=== PATIENT | female | born 1985 | race Caucasian/White ===

== ENCOUNTER → 2022-09-25 | Outpatient (CLI) | payer MEDICAID, SELFPAY ==
[2022-09-25 17:42] LABS: Absolute Lymphocyte Count 3.34 X10^3/uL (0.83-4.51); Absolute Neutrophil Count 3.1 X10^3/uL (2.0-7.7); Basophil# 0.02 X10^3/uL; Basophil% 0.3 % (0-1); Eosinophil# 0.06 X10^3/uL; Eosinophils% 0.9 % (0-5); Hematocrit 40.8 % (37-47); Hemoglobin 14.1 g/dL (12.0-15.0); Lymphocyte # 3.34 X10^3/ul (0.83-4.51); Lymphocyte % 47.4 % (19-41); Mean Corp Hgb Conc 34.6 g/dL (32-36); Mean Corpuscular Hgb 32.7 pg (27.0-32.0); Mean Corpuscular Volume 94.7 fL (81-99); Mean Platelet Vol. 12.6 fl (6.2-12.0); Monocyte# 0.52 X10^3/uL; Monocyte% 7.4 % (0-10); NRBC Flagged by Analyzer 0 % (0-5); Neutrophil # 3.08 X10^3/uL (2.7-7.7); Neutrophil % 43.7 % (47-70); Platelet Count 202 K/mm3 (150-450); RBC Distribution Width CV 12.4 % (11.6-14.6); RBC Distribution Width SD 42.8 fl (35.1-43.9); Red Blood Count 4.31 M/mm3 (4.2-5.4)
[2022-09-25 17:54] LABS: Erythrocyte Sedimentation Rate 4 mm/hr (0-30)
[2022-09-25 18:19] LABS: ALB/GLOB Ratio 1.1 RATIO (0.9-2.4); AST(SGOT) 14 U/L (15-37); Alanine Aminotransfer ALT/SGPT 25 U/L (13-56); Albumin, Serum 3.9 g/dL (3.2-5.0); Alkaline Phosphatase 45 U/L (45-117); Anion Gap 7 (5-15); BUN 11 mg/dL (7-18); BUN/Creat Ratio 13.4 RATIO (10-20); Chloride 107 mmol/L (98-107); Creatinine, Serum 0.82 mg/dL (0.55-1.02); EST Glomerular Filtration Rate 84 mL/min (>60); Est Glom Filt Rate - Afr Amer 102 mL/min (>60); Globulin 3.5 g/dL (2.2-4.2); Glucose 92 mg/dL (74-106); Potassium 3.9 mmol/L (3.5-5.1); Protein, Total 7.4 g/dL (6.4-8.2); Rheumatoid Factor < 10.0 IU/mL (<15); Sodium Level 138 mmol/L (136-145); Thyroid Stim Hormone (TSH) 1.22 uIU/mL (0.358-3.74)
[2022-09-28 17:15] LABS: ANTINUCLEAR ANTIBODIES DIRECT Negative (Negative)
[2022-09-30 16:45] LABS: CCP IgG Antibodies 5 units (0-19)
== END | disposition home or self-care (01) ==
PROVIDERS: PCP Family Medicine; Referring Provider Family Medicine; Visit Provider Family Medicine
DX: M06.9 Rheumatoid arthritis, unspecified (principal); F41.9 Anxiety disorder, unspecified
CPT/HCPCS: 86235 ×2; 86225; 36415; 80053; 84443; 85025; 85652; 86038; 86200; 86431

== ENCOUNTER → 2022-12-22 | Outpatient (CLI) | payer MEDICAID, SELFPAY ==
[2022-12-22 16:05] LABS: D-Dimer Quantitative (DVT/PE) < 0.27 FEU/ug/m (0.27-0.49)
== END | disposition home or self-care (01) ==
LOC: LABSPEC 15:04
PROVIDERS: PCP Family Medicine; Visit Provider Nurse Practitioner Acute Care
DX: R05.1 Acute cough (principal)
CPT/HCPCS: 85379

== ENCOUNTER 2023-02-24 13:34 | Emergency (ER) | payer MEDICAID, SELFPAY ==
[2023-02-24 13:36] VITALS: BP 118/74; PULSE 61; RESP 18; TEMP 36.4; O2SAT 99; BMI 25.7
--- NOTE | 2023-02-24 13:48 | NURSING ---
NO OLD EKGS
--- NOTE | 2023-02-24 13:55 | EKG12_ITS ---
Test Reason : SYNCOPE Blood Pressure : / mmHG Vent. Rate : 051 BPM Atrial Rate : 051 BPM P-R Int : 154 ms QRS Dur : 080 ms QT Int : 420 ms P-R-T Axes : 067 074 066 degrees QTc Int : 387 ms Sinus bradycardia Otherwise normal ECG Tall T wave Confirmed by AARON THOMAS ([id number]), video effects editor MARINA HANNAH ([id number]) on 03/02/2023 7:30:58 AM Referred By: Jermaine Rodriguez Confirmed By:AARON THOMAS
[2023-02-24 14:06] LABS: Absolute Lymphocyte Count 5.31 X10^3/uL (0.83-4.51); Absolute Neutrophil Count 4.3 X10^3/uL (2.0-7.7); Basophil# 0.03 X10^3/uL; Basophil% 0.3 % (0-1); Eosinophil# 0.07 X10^3/uL; Eosinophils% 0.7 % (0-5); Hematocrit 38.6 % (37-47); Hemoglobin 12.7 g/dL (12.0-15.0); Lymphocyte # 5.31 X10^3/ul (0.83-4.51); Lymphocyte % 50.8 % (19-41); Mean Corp Hgb Conc 32.9 g/dL (32-36); Mean Corpuscular Hgb 32.2 pg (27.0-32.0); Mean Corpuscular Volume 97.7 fL (81-99); Mean Platelet Vol. 11.2 fl (6.2-12.0); Monocyte# 0.74 X10^3/uL; Monocyte% 7.1 % (0-10); NRBC Flagged by Analyzer 0 % (0-5); Neutrophil # 4.27 X10^3/uL (2.7-7.7); Neutrophil % 40.7 % (47-70); POSITIVE DIFFERENTIAL YES; Platelet Count 260 K/mm3 (150-450); RBC Distribution Width CV 12.9 % (11.6-14.6); RBC Distribution Width SD 46.3 fl (35.1-43.9); Red Blood Count 3.95 M/mm3 (4.2-5.4); White Blood Count 10.5 K/mm3 (4.4-11.0)
[2023-02-24 14:11] LABS: Differential Indicated SCAN CRITERIA MET
[2023-02-24 14:22] LABS: ALB/GLOB Ratio 0.9 RATIO (0.9-2.4); AST(SGOT) 27 U/L (15-37); Alanine Aminotransfer ALT/SGPT 25 U/L (13-56); Albumin, Serum 3.4 g/dL (3.2-5.0); Alkaline Phosphatase 60 U/L (45-117); Anion Gap 3 (5-15); BUN 17 mg/dL (7-18); BUN/Creat Ratio 16.8 RATIO (10-20); Calcium,Total 9.5 mg/dL (8.5-10.1); Chloride 107 mmol/L (98-107); Creatinine, Serum 1.01 mg/dL (0.55-1.02); EST Glomerular Filtration Rate 66 mL/min (>60); Est Glom Filt Rate - Afr Amer 80 mL/min (>60); Estimated Creatinine Clearance 78.43 ml/min; Globulin 3.6 g/dL (2.2-4.2); Glucose 119 mg/dL (74-106); Lipase 121 U/L (13-75); Potassium 3.6 mmol/L (3.5-5.1); Sodium Level 136 mmol/L (136-145)
--- NOTE | 2023-02-24 14:26 | EDS_ITS ---
HPI History of Present Illness Chief Complaint: Syncope Detail of Chief Complaint: Syncopal episode and severe upper abdominal pain Informant: patient Onset/Context/Timing Onset: Hours Context: Sudden Onset Timing: Intermittent (Syncope was intermittent the abdominal pain has been constant since onset) Quality: Severe intense Location: Epigastric left upper quadrant Current Severity: Severe Maximum Severity: Severe Worsened by: Nothing specific Relieved by: Nothing Associated Symptoms Associated Symptoms: Nausea and syncope Narrative Narrative: Patient is a 37-year-old woman who developed severe epigastric left upper quadrant pain described as severe intense pain without radiation that was followed by change in vision, nausea and was informed by spectator that she became pale and was unresponsive. She states she may have had a seizure. There was no incontinence of urine or stool. She denies headache. She is uncertain whether she awoke immediately and was or was not confused. She denies black or maroon-colored stool. She denies shortness of breath, difficulty breathing or pleuritic pain. The pain does not radiate. She had similar pain when she was diagnosed with cholelithiasis and was told she had pancreatitis. She denies fever, chills night sweats. She denies headache, visual, ocular auditory symptoms. She denies renal or ureterolithiasis. She denies dysuria, frequency, urgency or hematuria. She is status post hysterectomy. Prior similar symptoms: Yes (Pain is similar to when she was diagnosed with pancreatitis) Recent Illness/Hospitalization: No PFSH PFSH Medical History (Updated 02/24/23 @ 15:[address] Jermaine Rodriguez MD) Anxiety Depression Home Medications hydrocodone-acetaminophen 5-325mg 5mg-325mg 1 tab PO Q6H PRN PRN Pain 3 days #10 TABLETS 02/24/23 [Rx Last Taken Unknown] Allergy/AdvReac Type Severity Reaction Status Date / Time fentanyl Allergy Itching Verified 02/24/23 13:41 morphine Allergy Itching Verified 02/24/23 13:41 Surgical History (Updated 02/24/23 @ 14:32 by Machelle Cruz) H/O: hysterectomy Hx of cholecystectomy Social History Smoking Status: Current every day smoker tobacco type: cigarettes ROS ROS ED Constitutional Constitutional ED: Denies chills, fever(s), subjective, sweats or weight loss Eyes Eyes: Denies blurry vision, change in vision or diplopia ENT ENT ED: Denies ear pain, rhinorrhea or sore throat Cardiovascular Cardiovascular: Denies chest pain, orthopnea, palpitations, paroxysmal nocturnal dyspnea or racing heartbeat Respiratory/Chest Respiratory/Chest: Denies cough, dyspnea, dyspnea on exertion, orthopnea or paroxysmal nocturnal dyspnea Gastrointestinal Gastrointestinal: Reports abdominal pain and nausea; Denies constipation, diarrhea, melena or vomiting Genitourinary Genitourinary ED: Denies dysuria, hematuria or urinary frequency Musculoskeletal Musculoskeletal: Denies arthralgias, back pain or myalgias Integumentary Denies rash Neurologic Neurologic: Denies headache(s), paresthesias or weakness Psychiatric Psychiatric: Reports anxiety and depression; Denies suicidal ideation Hematologic/Lymphatic Hematologic/Lymphatic: Reports systems reviewed and no addt'l complaints, except as documented EXAM Physical Exam Const Vital Signs: 02/24/23 13:36 02/24/23 13:41 02/24/23 14:57 Temperature 97.6 F L Temperature Source Temporal Pulse Rate 61 63 Respiratory Rate 18 18 Respiratory Effort Non-Labored Blood Pressure 118/74 112/77 Blood Pressure Mean 88 88 Pulse Ox 99 93 Oxygen Delivery Method Room Air Room Air 02/24/23 15:39 Temperature Temperature Source Pulse Rate 66 Respiratory Rate 12 Respiratory Effort Blood Pressure 111/69 Blood Pressure Mean 83 Pulse Ox 98 Oxygen Delivery Method Room Air Positive well nourished and well developed Constitutional Narrative: There was [place] no eye contact during history and physical. Patient appears in discomfort. She is holding her abdomen in the epigastric left upper quadrant. General Appearance ED: well developed; Negative for cyanotic, diaphoretic, NAD or pallor HEENT Reports dry mucous membranes HEENT Narrative: Head is atraumatic normocephalic. Ears normal. Nares patent. Mouth ED: Yes dry mucous membranes Mouth: dry mucous membranes Eyes PERRL and EOMs intact bilaterally General Eye ED: Negative for pale conjunctiva or scleral icterus Neck no lymphadenopathy, supple and no JVD Chest Wall inspection of chest normal and palpation of chest normal Resp normal respiratory effort and clear to auscultation bilaterally Cardio regular rate, regular rhythm, S1 normal heart sound, S2 normal heart sound and no murmurs GI non-distended and no masses; Negative for hepatosplenomegaly Auscultation: hypoactive bowel sounds Palpation: soft, tender epigastric and LUQ and guarding LUQ; Negative for splenomegaly, mass or rebound tenderness present Back/Spine no CVA tenderness Neuro oriented x3 and CN's II-XII intact bilaterally Sensorium / Orientation: alert Psych Psych Narrative: No eye contact. Affect is blunted. Skin no rashes or lesions noted, no wounds and skin turgor normal General Skin Exam: elasticity normal; Negative for jaundice or pallor MDM MDM MDM Narrative Medical decision making narrative: Suspect patient had a basal vagal episode due to pain. Since she has pain in the epigastric and left upper quadrant will treat with GI cocktail for possible esophagitis/gastritis. Will obtain lipase level since she has history of pancreatitis. Will obtain CBC to assess white count as well as H&H. Compre hensive metabolic panel was obtained to assess BUN/creatinine ratio and transaminases. Will medicate patient with IV morphine for her pain as well. Prior records were reviewed and patient is status postcholecystectomy. What was documented by nursing staff is incorrect. History & Record Review Additional record(s) reviewed:: Prior inpatient record and Prior labs Lab Data Attestation: I reviewed the patient's lab results. Lab results narrative: CBC is unremarkable. Comprehensive metabolic panel is remarkable for slight elevation in glucose of 119. Lipase is approximately 2 times upper end of normal and may represent pancreatitis. Incidence of pancreatitis is 70%. Labs: Laboratory Results - last 24 hr 02/24/23 02/24/23 13:27 13:27 WBC 10.5 RBC 3.95 L Hgb 12.7 Hct 38.6 MCV 97.7 MCH 32.2 H MCHC 32.9 RDW Std Deviation 46.3 H RDW Coeff of Heriberto 12.9 Plt Count 260 MPV 11.2 Immature Gran % (Auto) 0.400 Neut % (Auto) 40.7 L Lymph % (Auto) 50.8 H [place] % (Auto) 7.1 Eos % (Auto) 0.7 Baso % (Auto) 0.3 Absolute Neuts (auto) 4.3 Absolute Lymphs (auto) 5.31 H Nucleated RBC % 0 Differential Comment SCANNED Sodium 136 Potassium 3.6 Chloride 107 Carbon Dioxide 26.0 Anion Gap 3 L BUN 17 Creatinine 1.01 Estim Creat Clear Calc 78.43 Est GFR (MDRD) Af Amer 80 Est GFR (MDRD) Non-Af 66 BUN/Creatinine Ratio 16.8 Glucose 119 H Calcium 9.5 Total Bilirubin 0.20 AST 27 ALT 25 Alkaline Phosphatase 60 Total Protein 7.0 Albumin 3.4 Globulin 3.6 Albumin/Globulin Ratio 0.9 Lipase 121 H EKG Initial EKG: Attestation: I personally reviewed and interpreted this EKG as follows: Interpretation: Sinus Bradycardia (Rate of 51. The EKG is normal other than the bradycardia. IN interval is 154 ms. QS duration 80 ms. QT duration 420 ms. [place] is normal.) Treatment and Re-Evaluation :: Patient was informed and reevaluated of her results at 1545. Patient states the pain is markedly better. She acknowledges she did have drinks recently. She was informed that this in all likelihood is pancreatitis from her drinking. Recommended refraining from drinking. She was discharged with prescription for opiate analgesia and she was told the reason she passed out was because of the pain. She was explained what a vasovagal episode is. Discharge Plan Triage Chief Complaint: Syncope ED Provider: Jermaine Rodriguez Dx/Rx/DC Orders Clinical Impression: Acute alcoholic pancreatitis, Vasovagal syncope Instructions: ED Pancreatitis, ED Fainting, Vagal Reaction Prescriptions: New hydrocodone-acetaminophen [hydrocodone-acetaminophen] 5-325 mg tablet 1 tab PO Q6H PRN PRN (Reason: Pain) 3 Days Qty: 10 0RF Primary Care Provider: Behzad Escamilla Referrals: Behzad Escamilla MD [Primary Care Provider] - Disposition Disposition: Home, Self Care
[2023-02-24] MEDS: Ondansetron 4 MG/2 ML Vial IV (14:49)
[2023-02-24] MEDS: Mag Hydrox/Al Hydrox/Simeth 30 ML UDC PO (14:49)
[2023-02-24 14:57] VITALS: BP 112/77; PULSE 63; RESP 18; O2SAT 93
[2023-02-24 15:27] LABS: Differential Comment SCANNED
[2023-02-24 15:39] VITALS: BP 111/69; PULSE 66; RESP 12; O2SAT 98
== END 2023-02-24 16:11 | disposition home or self-care (01) ==
PROVIDERS: Emergency Provider Emergency Medicine; PCP Family Medicine; Referring Provider Emergency Medicine; Visit Provider Emergency Medicine
DX: R55 Syncope and collapse (principal); F17.210 Nicotine dependence, cigarettes, uncomplicated; K85.20 Alcohol induced acute pancreatitis without necrosis or infection; Z90.710 Acquired absence of both cervix and uterus
CPT/HCPCS: 80053; 83690; 85025; 93005; 96374; 99285; A4216; J2405

== ENCOUNTER 2023-03-02 09:37 | Outpatient (CLI) | payer MEDICAID, SELFPAY ==
[2023-03-02 10:15] LABS: Hematocrit 48.3 % (37-47); Hemoglobin 15.7 g/dL (12.0-15.0); Mean Corp Hgb Conc 32.5 g/dL (32-36); Mean Corpuscular Hgb 31.8 pg (27.0-32.0); Mean Corpuscular Volume 97.8 fL (81-99); Mean Platelet Vol. 11.1 fl (6.2-12.0); Platelet Count 276 K/mm3 (150-450); RBC Distribution Width CV 13.1 % (11.6-14.6); RBC Distribution Width SD 46.7 fl (35.1-43.9); Red Blood Count 4.94 M/mm3 (4.2-5.4); White Blood Count 6.2 K/mm3 (4.4-11.0)
[2023-03-02 11:00] LABS: AST(SGOT) 21 U/L (15-37); Alanine Aminotransfer ALT/SGPT 56 U/L (13-56); Albumin, Serum 3.9 g/dL (3.2-5.0); Alkaline Phosphatase 92 U/L (45-117); Anion Gap 6 (5-15); BUN 10 mg/dL (7-18); BUN/Creat Ratio 12.5 RATIO (10-20); Calcium,Total 9.7 mg/dL (8.5-10.1); Chloride 109 mmol/L (98-107); EST Glomerular Filtration Rate 87 mL/min (>60); Est Glom Filt Rate - Afr Amer 105 mL/min (>60); Globulin 3.9 g/dL (2.2-4.2); Glucose 125 mg/dL (74-106); Lipase 40 U/L (13-75); Potassium 4.1 mmol/L (3.5-5.1); Protein, Total 7.8 g/dL (6.4-8.2); Sodium Level 136 mmol/L (136-145)
== END 2023-03-02 23:59 | disposition home or self-care (01) ==
LOC: MFPLAB 09:41
PROVIDERS: PCP Family Medicine; Visit Provider Nurse Practitioner Family
DX: K85.90 Acute pancreatitis without necrosis or infection, unspecified (principal)
CPT/HCPCS: 36415; 80053; 83690; 85027

== ENCOUNTER → 2023-03-16 | Outpatient (CLI) | payer MEDICAID, SELFPAY ==
[2023-03-16 15:38] LABS: Absolute Lymphocyte Count 2.66 X10^3/uL (0.83-4.51); Basophil# 0.03 X10^3/uL; Basophil% 0.4 % (0-1); Eosinophil# 0.12 X10^3/uL; Eosinophils% 1.6 % (0-5); Hematocrit 41.6 % (37-47); Hemoglobin 13.7 g/dL (12.0-15.0); Lymphocyte # 2.66 X10^3/ul (0.83-4.51); Lymphocyte % 36.2 % (19-41); Mean Corp Hgb Conc 32.9 g/dL (32-36); Mean Corpuscular Volume 97.2 fL (81-99); Mean Platelet Vol. 11.9 fl (6.2-12.0); Monocyte# 0.48 X10^3/uL; Monocyte% 6.5 % (0-10); NRBC Flagged by Analyzer 0 % (0-5); Neutrophil # 4.04 X10^3/uL (2.7-7.7); Platelet Count 262 K/mm3 (150-450); RBC Distribution Width CV 12.6 % (11.6-14.6); RBC Distribution Width SD 45.2 fl (35.1-43.9); Red Blood Count 4.28 M/mm3 (4.2-5.4); White Blood Count 7.4 K/mm3 (4.4-11.0)
[2023-03-16 15:56] LABS: AST(SGOT) 18 U/L (15-37); Alanine Aminotransfer ALT/SGPT 23 U/L (13-56); Albumin, Serum 3.7 g/dL (3.2-5.0); Alkaline Phosphatase 61 U/L (45-117); Anion Gap 7 (5-15); BUN 10 mg/dL (7-18); BUN/Creat Ratio 12.3 RATIO (10-20); Calcium,Total 9.3 mg/dL (8.5-10.1); Chloride 110 mmol/L (98-107); Creatinine, Serum 0.82 mg/dL (0.55-1.02); EST Glomerular Filtration Rate 85 mL/min (>60); Est Glom Filt Rate - Afr Amer 102 mL/min (>60); Globulin 3.7 g/dL (2.2-4.2); Glucose 99 mg/dL (74-106); Potassium 3.8 mmol/L (3.5-5.1); Protein, Total 7.4 g/dL (6.4-8.2); Sodium Level 141 mmol/L (136-145)
[2023-03-16 16:01] LABS: Erythrocyte Sedimentation Rate 5 mm/hr (0-30)
== END | disposition home or self-care (01) ==
PROVIDERS: PCP Family Medicine; Referring Provider Family Medicine; Visit Provider Family Medicine
DX: R51.9 Headache, unspecified (principal)
CPT/HCPCS: 80053; 85025; 85652

== ENCOUNTER 2025-01-10 07:18 | Emergency (ER) | payer BC, MEDICAID, SELFPAY ==
[2025-01-10 07:19] VITALS: BP 114/78; PULSE 122; RESP 20; TEMP 37.7; O2SAT 98; BMI 21.8
[2025-01-10] MEDS: Ondansetron ODT 4 MG Tablet PO (07:51)
[2025-01-10] MEDS: Acetaminophen 500 MG Tablet 1000 MG PO (07:51)
--- NOTE | 2025-01-10 07:55 | EX.ED.DYSGE1 ---
HPI History of Present Illness Chief Complaint: Nausea/Vomiting/Diarrhea Narrative Narrative: Patient is a 39-year-old female with past medical history of Varsha, depression who presents to the emergency department chief complaint of nausea vomiting diarrhea whole body aches and not feeling well. Patient said yesterday she did not feel complete her normal self however around 1 AM this morning woke up with the symptoms. Patient denies any sick contacts. Patient complains of chills. [facility] Medical History Depression Anxiety Allergy/AdvReac Type Severity Reaction Status Date / Time fentanyl Allergy Itching Verified 06/14/24 11:20 morphine Allergy Itching Verified 06/14/24 11:20 Family History no significant family his Surgical History Hx of cholecystectomy H/O: hysterectomy Social History Smoking Status: Light Smoker (<10/day) ROS ROS ED ROS Narrative Constitutional: Complains of fever, chills, denies lightheaded dizziness Eyes: Denies change in vision double vision blurry vision Cardiovascular: Denies chest pain or palpitations Respiratory: Denies coughing wheezing shortness of breath Abdomen: Complains of nausea vomiting diarrhea as noted above : Denies urinary symptoms Neurological: Denies numbness, weakness, tingling Musculoskeletal: Denies back pain but complains of whole body aches Skin: Denies rashes or lesions EXAM Physical Exam Narrative Exam Narrative: General: Patient was lying in bed did appear to be uncomfortable secondary not feeling well overall Head: Atraumatic, normocephalic Eyes: PERRL bilaterally, EOMI bilateral, no conjunctival injection noted Neck: Soft, supple, trachea midline Cardiovascular: Regular rate and rhythm no murmurs gallops rubs noted Respiratory: Clear to auscultation bilaterally no rales rhonchi or wheezes noted Abdomen: Soft, nondistended, no tenderness palpation Extremities: +5/5 strength noted in the bilateral upper and lower extremities, radial pulses +2/4 in the bilateral extremities, no pedal edema on exam Neurological: Patient following commands that she was at [facility] year is 2024 Skin: Warm, dry, intact no rashes or lesions noted Const Vital Signs: 01/10/25 07:19 Temperature 99.9 F H Temperature Source Oral Pulse Rate 122 H Respiratory Rate 20 H Blood Pressure 114/78 Blood Pressure Mean 90 Pulse Ox 98 Oxygen Delivery Method Room Air MDM MDM MDM Narrative Medical decision making narrative: Patient is a 39-year-old female who presented to the emergency department with a chief complaint of diffuse bodyaches, nausea vomiting diarrhea and not feeling well since 1 AM this morning. On the differential diagnose includes but not limited to influenza, COVID, other viral gastroenteritis. Once workup is obtained and reviewed she will be reevaluated. Patient be given Zofran. Patient tested negative for COVID flu RSV. Her urine was sent for culture and she does not have any urinary symptoms currently we will hold off on antibiotics. Reevaluation of the patient and she is feeling better resting comfortably would like to go home at this point time. Patient was requesting a note that her dose of medication prior to discharge. She will be given a prescription for Bentyl and Zofran for home. She is advised to start bland diet advance as tolerated. She is encouraged return with worsening symptoms or concerns otherwise she is to follow-up with primary care physician after setting. She is agreeable this plan all question concerns answered she is discharged home in stable condition. Lab Data Labs: Laboratory Results - last 24 hr 01/10/25 08:40 Urine Color Kalyn Urine Clarity Sl. Cloudy Urine pH 6.0 Ur Specific [place] 1.015 Urine Protein 30 H Urine Glucose (UA) Normal Urine Ketones 5 H Urine Occult Blood 10 H Urine Nitrite Positive H Urine Bilirubin 3 H Urine Urobilinogen 1 H Ur Leukocyte Esterase 100 H Urine RBC 0-5 SEEN Urine WBC 0-5 SEEN Ur Squamous Epith Cells 10-25 SEEN Urine Bacteria 2+ Urine Mucus 2+ Urine Test Negative Discharge Plan Triage Chief Complaint: Nausea/Vomiting/Diarrhea ED Provider: Óscar Teixeira Dx/Rx/DC Orders Clinical Impression: Nausea & vomiting, Diarrhea, Body aches Primary Care Provider: Behzad Escamilla Referrals: Behzad Escamilla MD [Primary Care Provider] - Activity Restrictions/Additional Instructions: Start with bland diet advance as tolerated. Ensure adequate hydration. Use prescriptions as prescribed. Return with worsening symptoms or concerns. Follow-up and urine culture with your primary care physician. Print Language: Albanian Disposition Disposition: Home, Self Care
[2025-01-10 08:51] LABS: Color, Urine Amber (Yellow); Glucose, Dipstick Normal (Normal); Ketone-Dipstick 5 mg/dl (Negative); Leukocyte Esterase-Dipstick 100 /ul (Negative); Nitrite-Dipstick Positive (Negative); Occult Blood-Urine 10 /ul (Negative); Protein-Dipstick 30 mg/dl (Negative); Specific Gravity, Urine 1.015 (1.002-1.030); Urine Clarity Sl. Cloudy (Clear); Urine Urobilinogen 1 mg/dl (Normal)
[2025-01-10 08:56] LABS: Urine Bilirubin Dipstick 3 mg/dL (Negative)
[2025-01-10 09:04] LABS: Bacteria 2+ /hpf (None Seen); Mucous, Urine 2+ /hpf (<or=2+)
[2025-01-10 09:06] LABS: Red Blood Cells-Urine 0-5 SEEN /hpf (0-5); Squamous Epithelial Cells - UA 10-25 SEEN /hpf (5-10); White Blood Cells 0-5 SEEN /hpf (0-5)
[2025-01-10 09:07] LABS: Internal QC Validated? YES +Cl - CLEAR BKGD; Pregnancy, Urine Negative Negative
[2025-01-10 09:19] VITALS: BP 111/74
[2025-01-10] MEDS: Dicyclomine 10 MG Capsule 20 MG PO (09:59)
[2025-01-10] MEDS: Ibuprofen 600 MG Tablet PO (09:59)
[2025-01-10 10:00] VITALS: BP 105/70; PULSE 74; RESP 14; TEMP 35.5; O2SAT 96
== END 2025-01-10 10:04 | disposition home or self-care (01) ==
PROVIDERS: Emergency Provider Emergency Medicine; PCP Family Medicine; Visit Provider Emergency Medicine
DX: R11.2 Nausea with vomiting, unspecified (principal); R19.7 Diarrhea, unspecified; Z90.49 Acquired absence of other specified parts of digestive tract; Z90.710 Acquired absence of both cervix and uterus; F17.200 Nicotine dependence, unspecified, uncomplicated; M79.10 Myalgia, unspecified site; R50.9 Fever, unspecified
CPT/HCPCS: 81001; 81025; 87086; 87088; 87631; 99282; A4216